=== PATIENT | female | born 1975 | race Two or more races ===

== ENCOUNTER → 2025-05-28 10:40 | Outpatient (CLI) | payer OTHER ==
[2025-05-28 12:00] LABS: BASO % 0.8 % (0.1-1.2); EOS # 0.31 (0.04-0.54); EOS % 4.2 % (0.7-7.0); LYMPH # 2.14 (1.18-3.74); LYMPH % 29.2 % (19.3-53.1); MEAN PLATELET VOLUME 11.90 fl (9.4-12.4); MONO # 0.57 (0.24-0.82); MONO % 7.8 % (4.7-12.5); NEUT # 4.22 (1.56-6.13); NEUT % 57.5 % (34.0-71.1); RED CELL DISTRIBUTION WIDTH 12.9 % (11.6-14.4)
[2025-05-28 12:10] LABS: INR 1.01
[2025-05-28 12:47] LABS: % SATURACION 28.4 % (15-50); ALT/SGPT 24.0 U/L (12-78); AST/SGOT 9.0 U/L (15-37); BILIRUBIN TOTAL 0.63 mg/dL (0.3-1.2); BUN CREA RATIO 12.0 (7.0-25.0); CREATININE SERUM 0.6 mg/dL (0.55-1.02); FE 92.0 ug/dl (50-170); GFR 105.39; GLOBULINA 3.6 G/DL (2.4-3.5); GLUCOSE FASTING 77.0 mg/dL (65-100); LDH 173.0 U/L (84-246); OSMOLALITY SERUM 280.0 MOSM/KG (275-295); T4 FREE 0.88 NG/ML (0.76-1.46); TSH 0.866 uIU/mL (0.358-3.74)
[2025-05-28 13:44] LABS: COL ADP 92.0 SECONDS (56-102); COL EPI 287.0 SECONDS (82-175)
[2025-05-30 11:53] LABS: FOLIC ACID > 20.00 ng/ml (4.78-20)
[2025-05-31 09:11] LABS: ANTI THYROID PEROXIDASE 181.0 IU/mL (0-34); HOMOCYSTEINE 5.2 umol/L (0.0-14.5)
[2025-06-01 11:08] LABS: PARIETAL CELL ANTIBODIES 73.9 Units (0.0-20.0)
[2025-06-03 23:06] LABS: VITAMIN K 0.16 ng/mL (0.10-2.20)
== END | disposition home or self-care (01) ==
LOC: LAB 10:40
PROVIDERS: ATTEND Internal Medicine Hematology & Oncology
DX: D50.8 Other iron deficiency anemias (principal); I10 Essential (primary) hypertension; R74.02 Elevation of levels of lactic acid dehydrogenase [LDH]; K76.89 Other specified diseases of liver; D51.3 Other dietary vitamin B12 deficiency anemia; D52.9 Folate deficiency anemia, unspecified; D51.1 Vitamin B12 deficiency anemia due to selective vitamin B12 malabsorption with proteinuria; D51.0 Vitamin B12 deficiency anemia due to intrinsic factor deficiency; E03.8 Other specified hypothyroidism; E06.3 Autoimmune thyroiditis; E72.11 Homocystinuria; D68.8 Other specified coagulation defects; E56.1 Deficiency of vitamin K